=== PATIENT | female | born 1995 | race Caucasian/White ===

== ENCOUNTER 2022-11-04 06:47 | Day surgery (SDC) | payer BC ==
[~2022-11-04 06:47] MED LIST: Lactated Ringers 1,000 ML IV SCH; Scopolamine 1.5 MG Transdermal Patch TOP ONE
[2022-11-04] MEDS ORDERED: Bupivacaine 0.25% 30 ML SDV ONE (07:27)
[2022-11-04] MEDS ORDERED: Methylene Blue 50 MG/10 ML Ampule ONE (07:27)
[2022-11-04] MEDS ORDERED: HYDROmorphone 1 MG/ML Syringe IVPUSH PRN (07:29)
[2022-11-04] MEDS ORDERED: Metoclopramide 10 MG/2 ML SDV IVPUSH PRN (07:29)
[2022-11-04] MEDS ORDERED: Morphine 2 MG/ML SYRINGE IVPUSH PRN (07:29)
[2022-11-04] MEDS ORDERED: Albuterol 0.083% 2.5 MG/3 ML Neb Soln NEB PRN (07:29)
[2022-11-04] MEDS ORDERED: fentaNYL 50 MCG/ML SDV IVPUSH PRN (07:29)
[2022-11-04] MEDS ORDERED: Ondansetron 4 MG/2 ML SDV IVPUSH PRN (07:29)
[2022-11-04] MEDS ORDERED: Naloxone 0.4 MG/ML SDV IVPUSH PRN (07:29)
[2022-11-04] MEDS ORDERED: Ketorolac 30 MG/ML SDV ONE (07:37)
[2022-11-04] MEDS ORDERED: fentaNYL 100 MCG/2 ML SDV ONE (07:37)
[2022-11-04] MEDS ORDERED: Rocuronium Bromide 50 MG/5 ML Syringe ONE (07:37)
[2022-11-04] MEDS ORDERED: Dexamethasone 4 MG/ML 5 ML MDV ONE (07:37)
[2022-11-04] MEDS ORDERED: Ondansetron 4 MG/2 ML SDV ONE (07:37)
[2022-11-04] MEDS ORDERED: Lidocaine 2% 5 ML SDV ONE (07:37)
[2022-11-04] MEDS ORDERED: Sugammadex Sodium 200 MG/2 ML VIAL ONE (07:37)
[2022-11-04] MEDS ORDERED: Propofol 200 MG/20 ML SDV ONE (07:37)
[2022-11-04] MEDS ORDERED: ePHEDrine 50 MG/ML SDV ONE (08:15)
== END 2022-11-04 10:10 | disposition home or self-care (01) ==
LOC: MW.SDS 06:47
PROVIDERS: ATTEND Obstetrics & Gynecology
DX: N80.00 Endometriosis of the uterus, unspecified (principal); Z88.0 Allergy status to penicillin
CPT/HCPCS: 36415; 58350; 58662; 84703; 85027; A9270; J0131; J1100; J1885; J2405; J2704; J3010; J3490; J7120; 00840

== ENCOUNTER 2024-04-30 07:45 | Inpatient (IN) | payer BC ==
[2024-04-30] MEDS ORDERED: Butorphanol 2 MG/ML SDV IVPUSH PRN (08:14)
[2024-04-30] MEDS ORDERED: Misoprostol 200 MCG Tab PO PRN (08:14)
[2024-04-30] MEDS ORDERED: Methylergonovine 0.2 MG/1 ML Amp IM PRN (08:14)
[2024-04-30] MEDS ORDERED: Water For Irrigation,Sterile 1,000 ML Container IRR PRN (08:14)
[2024-04-30] MEDS ORDERED: Sodium Chloride 0.9% 10 ML Syringe FLUSH PRN (08:14)
[2024-04-30] MEDS ORDERED: Tranexamic Acid IN NACL,ISO-OS 1,000 MG in Premix Bag 1 BAG IV PRN (08:14)
[2024-04-30] MEDS ORDERED: Carboprost Tromethamine 250 MCG/1 mL Vial IM PRN (08:14)
[2024-04-30] MEDS ORDERED: Sodium Chloride 0.9% 20 ML SDV IV PRN (08:14)
[2024-04-30] MEDS ORDERED: Sodium Chloride 0.9% 2.5 ML Syringe FLUSH PRN (08:14)
[2024-04-30] MEDS ORDERED: Lactated Ringers 1,000 ML IV SCH (08:15)
[2024-04-30] MEDS ORDERED: Terbutaline 1 MG/ML SDV SUBCUT PRN (08:22)
[2024-04-30] MEDS ORDERED: Oxytocin/0.9 % Sodium Chloride 30 UNIT/500 ML BAG IV SCH (08:30)
[2024-04-30] MEDS: Misoprostol 25 MCG (1/4 of 100 MCG) Tab VAG PRN ×2 (08:49→15:05)
[2024-04-30 10:02] LABS: HEMATOCRIT 36.3 % (37.0-47.0); HEMOGLOBIN 12.1 g/dL (12.0-16.0); MEAN CORPUSCULAR HEMOGLOBIN 26.5 pg (28.0-32.0); MEAN CORPUSCULAR HGB CONC 33.3 g/dL (32.0-36.0); MEAN CORPUSCULAR VOLUME 79.6 fL (83.0-99.0); PLATELET COUNT,PLT 181 K/uL (150-400); RED BLOOD CELL COUNT 4.56 M/uL (4.10-5.30); WHITE BLOOD CELL COUNT,WBC 10.11 K/uL (3.9-11.3)
[2024-04-30] MEDS: Oxytocin/0.9 % Sodium Chloride 30 UNIT/500 ML BAG IV SCH (20:03)
[2024-04-30] MEDS ORDERED: Simethicone 80 MG Tab.Chew PO PRN (20:51)
[2024-04-30] MEDS ORDERED: Aluminum Hydroxide/Magnesium Hydroxide/Simethicone XS Susp 30 ML Cup PO PRN (20:51)
[2024-04-30] MEDS ORDERED: Acetaminophen 500 MG Tab PO PRN (20:51)
[2024-04-30] MEDS ORDERED: Lanolin 100% Cream 7 GM Tube TOP PRN (20:51)
[2024-04-30] MEDS ORDERED: Docusate Sodium 100 MG Cap PO PRN (20:51)
[2024-04-30] MEDS: Lidocaine 1% 50 ML MDV INJECT PRN (20:58)
[2024-04-30 21:02] LABS: PH,UMBILICAL ARTERIAL 7.291 (7.18-7.38); PH,UMBILICAL VENOUS 7.306 (7.25-7.45)
[2024-04-30] MEDS: Ibuprofen 800 MG Tab PO PRN (21:53)
[2024-04-30] MEDS: Witch Hazel Medicated Pads 40/Jar TOP PRN (21:54)
[2024-04-30] MEDS: Benzocaine/Menthol 20%-0.5% Spray 78 GM Cannister TOP PRN (21:55)
[2024-05-01 06:50] LABS: BASOPHILS ABSOLUTE AUTO 0.03 K/uL (0.00-0.20); BASOPHILS PERCENT AUTO 0.2 % (0.0-1.0); EOSINOPHILS ABSOLUTE AUTO 0.06 K/uL (0.00-0.45); EOSINOPHILS PERCENT AUTO 0.4 % (0.0-6.0); HEMATOCRIT 35.7 % (37.0-47.0); IMMATURE GRAN ABSOLUTE AUTO 0.07 K/uL (0.00-0.05); IMMATURE GRAN PERCENT AUTO 0.5 % (0.0-0.4); LYMPHOCYTES ABSOLUTE AUTO 2.07 K/uL (1.00-4.80); LYMPHOCYTES PERCENT AUTO 14.6 % (24.0-44.0); MEAN CORPUSCULAR HEMOGLOBIN 26.7 pg (28.0-32.0); MEAN CORPUSCULAR HGB CONC 33.6 g/dL (32.0-36.0); MEAN CORPUSCULAR VOLUME 79.5 fL (83.0-99.0); MEAN PLATELET VOLUME 11.3 fL (9.4-12.3); MONOCYTES ABSOLUTE AUTO 0.95 K/uL (0.00-0.80); MONOCYTES PERCENT AUTO 6.7 % (0.0-8.0); NEUTROPHILS ABSOLUTE AUTO 11.04 K/uL (1.80-7.70); NEUTROPHILS PERCENT AUTO 77.6 % (41.0-71.0); PLATELET COUNT,PLT 174 K/uL (150-400); RED BLOOD CELL COUNT 4.49 M/uL (4.10-5.30); WHITE BLOOD CELL COUNT,WBC 14.22 K/uL (3.9-11.3)
== END 2024-05-01 22:25 | disposition home or self-care (01) | DRG 560 ==
LOC: MW.OB 07:45 → OBSVTOIN 19:54 → MW.OB 05-01 00:06
PROVIDERS: ADMIT Obstetrics & Gynecology; ATTEND Obstetrics & Gynecology
PROC: 10E0XZZ Delivery of Products of Conception, External Approach (ICD-10-PCS; principal; 2024-04-30)
PROC: 0KQM0ZZ Repair Perineum Muscle, Open Approach (ICD-10-PCS; 2024-04-30)
PROC: 3E033VJ Introduction of Other Hormone into Peripheral Vein, Percutaneous Approach (ICD-10-PCS; 2024-04-30)
DX: O48.0 Post-term pregnancy (principal); Z37.0 Single live birth; O99.892 Other specified diseases and conditions complicating childbirth; N80.3C3 Endometriosis of bilateral uterosacral ligament(s), unspecified depth; Z3A.40 40 weeks gestation of pregnancy; O70.1 Second degree perineal laceration during delivery
CPT/HCPCS: 36415; 59025; 59409; 82803; 85025; 85027; 86592; 86850; 86900; 86901; A9270-GY; J2001; J2590